=== PATIENT | female | born 1950 | race Caucasian/White ===

== ENCOUNTER 2019-11-14 12:15 | Inpatient (IN) | payer MEDICARE, BC, SELFPAY ==
[2019-11-03 12:29] VITALS: BP 92/52; PULSE 65; RESP 16; TEMP 36.8; O2SAT 100; BMI 13.1
--- NOTE | 2019-11-13 17:32 | WPDANESEPP ---
Anes - Eval Pre Procedure Procedure: Operation Date: 11/14/19 07:30 Proposed Procedures p Hand-Assisted Laparoscopic Left Nephrectomy, Possible Transurethral Resection Left Ureteral Orifice - Robbie Galvan MD Date/Time: 11/13/19 17:32 Pre Op Diagnosis: Left Renal Mass Patient Data Age: 69 Gender: F Height: 5 ft 2 in Weight: 32.7 kg Last Vital Signs Temp 98.2 F 11/03/19 12:29 Pulse 65 11/03/19 12:29 Resp 16 11/03/19 12:29 BP 92/52 L 11/03/19 12:29 Pulse Ox 100 11/03/19 12:29 Allergies Allergy/AdvReac Type Severity Reaction Status Date / Time No Known Allergies Allergy Unverified 11/03/19 12:39 Home Medications Medication Instructions Recorded Confirmed Type alendronate [Fosamax] 70 mg PO WEEKLY 10/03/19 11/03/19 History levothyroxine [Synthroid] 88 mcg PO DAILY 10/03/19 11/03/19 History Patient hx anesthesia problems: none Family hx anesthesia problems: none PMFSH Past Medical History Medical History (Updated 11/13/19 @ 17:34 by David Matthew CRNA) Arthritis Hypothyroidism Osteoporosis Thyroid cancer Surgical History Surgical History History of appendectomy History of hysterectomy History of thyroidectomy Family History Family History Other Family history of arthritis Family history of cardiovascular disease Family history of thyroid disease Social History Social History Smoking status: Never smoker Alcohol intake: never Gender identity (if verbalized by the patient): Female Exam Day of Procedure 11/13/19 17:32 Heart: other (VR 58, SINUS BRADYCARDIA POSSIBLE LEFT ATRIAL ENLARGEMENT RIGHT AXIS DEVIATION RSR' IN V1 OR V2, PROBABLY NORMAL VARIANT ANTEROLATERAL INFARCT, AGE INDETERMINATE INFERIOR INFARCT, AGE INDETERMINATE BASELINE ARTIFACT- I, III, AVR, AVL ABNORMAL ECG)
[2019-11-14] VITALS (13 sets, daily range): BP systolic 92–134; BP diastolic 50–91; PULSE 49–65; RESP 13–20; TEMP 36.1–37.8; O2SAT 99–100; BMI 13.4
[2019-11-14] MEDS: LACTATED RINGERS 1,000 ML 30 ML IV CONT (06:25)
--- NOTE | 2019-11-14 06:50 | P.PNAN_ITS ---
Anes - Eval Final PreProcedure Day of Procedure 11/14/19 06:50 Patient weight: thin Heart: regular rate and rhythm Lungs: clear to auscultation and normal air movement Airway: Mallampati scale class II Neurological: alert and oriented Last oral intake: >/= 8 hours ASA classification: III Emergent: no Anesthetic plan: proceed Anesthesia type and monitoring: general ETT Informed Consent: The patient's anesthetic plan and its attendant risks and jesse efits were discussed with the patient/family/POA. Questions were solicited and answers provided to the satisfaction of the patient/family/POA.
--- NOTE | 2019-11-14 06:51 | WPDHPUPDATE1 ---
History and Physical Update Update Date/Time: 11/14/19 06:51 History and Physical has been reviewed, including an updated exam of the patient. There are NO changes in the patient's condition. Risks, benefits, and alternatives have been discussed and questions answered. Patient agrees to proceed with procedure. Khadijah has opted for PAUL left nephroureterctomy with possible transurethral resection of left ureteral orifice.
--- NOTE | 2019-11-14 06:59 | SUR.PREOP ---
pt presents w/scabbed area d/i to left pisano area/md aware
[2019-11-14] MEDS: ceFAZolin 2 GM/D5W 50 ML 2 GM/50 ML BAG IVPB (07:26)
[2019-11-14] MEDS: LIDOCAINE HCL 2% GEL UROJET 10 ML PKG MUCOUS MEM (10:38)
--- NOTE | 2019-11-14 10:43 | PM.PROC ---
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 Once general anesthesia was obtained she was placed in the decubitus position left side up. All pressure points were padded. She was secured using a beanbag and silk tape. Axillary roll had been placed. Sixteen Faroese Estrada was placed into the bladder prior to positioning. Mr. Rustam santos is extremely cachectic in appearance. We started out by placing a midline incision around the umbilicus. This was carried down to the rectus fascia. The rectus fascia was incised and the abdominal cavity was entered. A hand port was placed in the abdomen was insufflated to 15 mmHg pressure. Under direct vision we placed our camera port mid axillary line to the left. We also placed a working hand port inferior and lateral to the GelPort. Given her extremely small size it was a tight working space. We were able to reflect the colon medially. There is very minimal Gerota's fascia around the kidney. We were able to dissect out the ureter and lifted off the psoas muscle. The kidney was then dissected posteriorly superiorly and medially. The renal artery and vein were adjacent to each other. Went ahead and placed an endovascular stapler across the renal hilar area. This was transected and there was good hemostasis. The ureter was then dissected down to the hiatus and entrance into the bladder. Fiona were placed at this point time. The specimen was sent to pathology. A Blu-Chase drain was then placed in the left lower quadrant through a separate stab incision and secured. All lap count needle count sponge counts were correct. Port sites were removed. We closed the port sites using 0 Vicryl. Rectus fascia was closed using double looped 0 PDS in a running fashion. Subcuticular stitches were then placed with Monocryl. Patient was then repositioned in a dorsal lithotomy position. Twenty-4 Faroese resectoscope sheath was then inserted into the bladder. The left ureteral orifice was noted to be puckering from the tension that was placed on the outside of the bladder. We went ahead and resected the orifice and intramural ureter and sent it for analysis. Hemostasis was achieved using electrocautery. 2% viscous lidocaine was inserted into the urethra and an 18 Faroese Estrada was placed. Estrada was connected to gravity drainage. Should be taken to recovery room. Remain in for a week and she will require a catheter cystogram prior to its removal. Anesthesia: GLMA and GETA Surgeon: Robbie Galvan MD Estimated blood loss (mL): 25 Drains: Yes Packing: No Pathology: yes Complications: No immediate complications Condition: stable Disposition: PACU
[2019-11-14] MEDS: ONDANSETRON INJ 4 MG/2 ML VIAL IV PUSH ×3 (12:04→18:13)
[2019-11-14 13:23] LABS: Hematocrit 33.5 % (37.0-47.0); Hemoglobin 10.8 g/dL (12.0-15.0)
--- NOTE | 2019-11-14 13:26 | ADMGEN ---
This patient, Khadijah Eddy, was admitted to [facility] Surg Room 323-01. Patient/family oriented to hospital policies and general routines including ID bracelet, bed and alarms, visiting hours, pain management, procedures, bathroom and other care routines, personal items, smoking policy, room service/diet, and visiting hours. Valuables list has been completed. Information on how to activate the Rapid Response Team has been discussed. Patient/Family are encouraged to report perceived risks to care and to ask questions if they do not understand what they are told or what they should do.
[2019-11-14 13:35] LABS: Blood Urea Nitrogen 26 mg/dL (7-17); Calcium 8.2 mg/dL (8.4-10.2); Carbon Dioxide 26 mmol/L (22-30); Chloride 99 mmol/L (98-107); Estimated CRCL calculation 37 ml/min; Estimated Glomerular Filt Rate > 60; Glucose 138 mg/dL (65-105); Potassium 4.1 mmol/L (3.4-5.0); Sodium 132 mmol/L (137-145)
[2019-11-14] MEDS: DEXTROSE 5%/LACTATED RINGERS 1,000 ML 150 ML IV CONT ×2 (14:05→22:33)
[2019-11-14] MEDS: FAMOTIDINE 20 MG/2 ML VIAL IV PUSH (20:59)
[2019-11-14] MEDS: OXYBUTYNIN CHLORIDE 5 MG TABLET PO (21:00)
[2019-11-15] VITALS: BP 93/48; PULSE 76; RESP 16; TEMP 37.3; O2SAT 100
[2019-11-15] MEDS: DEXTROSE 5%/LACTATED RINGERS 1,000 ML 150 ML IV CONT ×3 (05:37→20:00)
[2019-11-15] MEDS: LEVOTHYROXINE SODIUM 88 MCG TABLET PO (05:37)
[2019-11-15] MEDS: ALENDRONATE SODIUM 70 MG TABLET PO (05:38)
[2019-11-15 06:00] VITALS: BP 89/51; PULSE 75; RESP 16; TEMP 36.7; O2SAT 98
[2019-11-15 06:15] LABS: Basophils Percent Auto 0.2 % (0.2-1.2); Hematocrit 31.5 % (37.0-47.0); Hemoglobin 10.3 g/dL (12.0-15.0); Immature Granulocyte Absolute 0.01 K/mm3 (0.00-0.031); Immature Granulocyte Percent A 0.2 % (0-0.5); Lymphocytes Absolute Auto 0.33 K/mm3 (0.9-3.2); Mean Corpuscular HGB Conc 32.7 g/dl (32-36); Mean Corpuscular Hemoglobin 30.4 pg (26-34); Mean Corpuscular Volume 92.9 fl (80-100); Mean Platelet Volume 9.1 fl (7.4-10.4); Monocytes Absolute Auto 0.4 K/mm3 (0.1-0.6); Monocytes Percent Auto 7.6 % (2.6-8.5); Neutrophils Absolute Auto 4.7 K/mm3 (1.3-6.7); Platelet Count Result 164 k/mm3 (150-375); Red Blood Count 3.39 M/mm3 (4.2-5.4); Red Cell Distribution Width 14.4 % (11.5-14.5); White Blood Count 5.5 K/mm3 (4.5-10.0)
[2019-11-15 06:29] LABS: Blood Urea Nitrogen 20 mg/dL (7-17); Carbon Dioxide 31 mmol/L (22-30); Chloride 100 mmol/L (98-107); Estimated CRCL calculation 23 ml/min; Estimated Glomerular Filt Rate 55; Glucose 101 mg/dL (65-105); Potassium 4.3 mmol/L (3.4-5.0); Sodium 133 mmol/L (137-145)
--- NOTE | 2019-11-15 07:00 | WPDUROPN2 ---
Progress Note: A&P Assessment and Plan (1) Left renal mass: Code(s): N28.89 - Other specified disorders of kidney and ureter Status: Acute Assessment and Plan: Postoperative day 1 from hand assisted laparoscopic left nephro ureterectomy with TUR of left ureteral orifice. Doing well overall. Plan is for increasing activity with ambulation as well as incentive spirometer. Have discussed her extreme weight loss. She is aware but has difficulty addressing it. 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 From hand assisted laparoscopic left nephroureterectomy with transurethral resection of left ureteral orifice. Khadijah is doing well overall. Vital signs are stable she does run a lower blood pressure. Has typical postoperative discomfort at hand port site. Review of Systems Constitutional: Constitutional: Reports as per HPI Exam Const: General: no acute distress HENMT: General nose exam: Normal nares present Eyes: General: appearance normal, both eyes and all related structures EOM: EOMs intact bilaterally Resp: Effort & Inspection: normal respiratory effort Cardio: Rate: regular rate Urinary Catheter: Urinary Catheter: patent and draining and urine clear Objective Data Vital Signs Vital Signs: Vital Signs - 24 hr 11/14/19 10:50 11/14/19 11:00 11/14/19 11:15 Temperature 36.1 C L Pulse Rate 63 65 54 L Respiratory Rate 20 19 19 Blood Pressure 103/54 L 134/91 H 120/61 Pulse Oximetry 100 100 100 11/14/19 11:30 11/14/19 11:45 11/14/19 12:00 Temperature Pulse Rate 49 L 51 L 49 L Respiratory Rate 13 13 13 Blood Pressure 108/57 L 114/60 114/60 Pulse Oximetry 100 100 100 11/14/19 12:13 11/14/19 12:15 11/14/19 12:30 Temperature Pulse Rate 51 L 51 L 52 L Respiratory Rate 13 16 16 Blood Pressure 118/57 L 106/52 L 106/50 L Pulse Oximetry 100 100 100 11/14/19 13:00 11/14/19 20:10 11/14/19 21:00 Temperature 37.8 C H 36.8 C Pulse Rate 60 62 Respiratory Rate 16 16 Blood Pressure 110/63 92/51 L Pulse Oximetry 100 99 11/15/19 00:00 Temperature 37.3 C Pulse Rate 76 Respiratory Rate 16 Blood Pressure 93/48 L Pulse Oximetry 100 Intake/Output Intake/Output: Intake & Output 11/12/19 11/13/19 11/14/19 11/15/19 23:59 23:59 23:59 23:59 Intake Total 1435 1000 Output Total 180 Balance 1255 1000 Meds/Results Medications: Active Medications Generic Name Dose Route Start Last Admin Trade Name Freq PRN Reason Stop Dose Admin Hydrocodone Bitart/Acetaminophen 2 tab 11/15/19 05:00 [place] 5-325 Mg PO Q4H PRN Pain Rated 4-6 Hydrocodone Bitart/Acetaminophen 1 tab 11/15/19 09:00 [place] 5-325 Mg PO Q4H PRN Pain Rated 1-3 Alendronate Sodium 70 mg 11/14/19 14:00 11/14/19 18:15 Fosamax PO Not Given Tu@0630 BETTIE Famotidine 20 mg 11/14/19 21:00 11/14/19 20:59 Pepcid Iv IV PUSH 11/16/19 09:01 20 mg Q12HR BETTIE Administration Hydromorphone HCl 0.5 mg 11/14/19 12:13 Dilaudid Inj IV PUSH Q4H PRN Pain Rated 7-10 Dextrose/Lactated Ringer's 1,000 mls @ 150 mls/hr 11/14/19 12:13 11/15/19 05:37 Dextrose 5%/Lactated Ringers IV CONT 150 mls/hr .Q6H40M BETTIE Administration Cefazolin Sodium 1 gm in 50 mls @ 100 mls/hr 11/14/19 15:00 11/15/19 05:37 Ancef 1 Gm/D5w 50 Ml Pm IVPB 11/15/19 07:29 100 mls/hr Q8H BETTIE Administration Levothyroxine Sodium 88 mcg 11/15/19 06:30 11/15/19 05:37 Synthroid PO 88 mcg DAILY@0630 BETTIE Administration Morphine Sulfate 1 mg 11/14/19 14:00 Morphine Sulfate Inj IV PUSH Q4H PRN Pain Rated 4-6 Naloxone HCl 0.1 mg 11/14/19 12:13 Narcan IV PUSH Q2M PRN Opiate Reversal Ondansetron HCl 4 mg 11/14/19 12:13 11/14/19 18:13 Zofran Inj IV
[2019-11-15] MEDS: FAMOTIDINE 20 MG/2 ML VIAL IV PUSH ×2 (09:12→20:01)
[2019-11-15] MEDS: OXYBUTYNIN CHLORIDE 5 MG TABLET PO ×2 (09:12→20:01)
[2019-11-15 10:00] VITALS: BP 86/45; PULSE 66; RESP 16; TEMP 37.2; O2SAT 100
--- NOTE | 2019-11-15 11:34 | P.PNAN_ITS ---
Anes - Prog Note Post-Op Date/Time: 11/15/19 11:34 Cardiovascular status: normal Respiratory status: normal Airway patency: baseline Mental status: baseline Post-Op hydration status: normal Vital Signs: Last Vital Signs Temp 37.2 C 11/15/19 10:00 Pulse 66 11/15/19 10:00 Resp 16 11/15/19 10:00 BP 86/45 L 11/15/19 10:00 Pulse Ox 100 11/15/19 10:00 I/O: Intake & Output 11/14/19 11/15/19 11/15/19 23:59 07:59 15:59 Intake Total 1220 1060 Output Total 160 1325 Balance 1060 -265 Laboratory Tests 11/15/19 05:58 11/15/19 05:58 11/14/19 11/14/19 11/15/19 13:14 13:14 05:58 WBC 5.5 RBC 3.39 L Hgb 10.8 L 10.3 L Hct 33.5 L 31.5 L MCV 92.9 MCH 30.4 MCHC 32.7 RDW 14.4 Plt Count 164 MPV 9.1 Immature Gran % (Auto) 0.2 Neut % (Auto) 86.0 H Lymph % (Auto) 6.0 L Callahan % (Auto) 7.6 Eos % (Auto) 0.0 Baso % (Auto) 0.2 Lymph # (Auto) 0.33 L Callahan # (Auto) 0.4 Eos # (Auto) 0.0 Baso # (Auto) 0.0 Abs Immat Gran (auto) 0.01 Absolute Neuts (auto) 4.7 Absolute Nucleated RBC 0.0 Nucleated RBC % 0.0 Sodium 132 L Potassium 4.1 Chloride 99 Carbon Dioxide 26 BUN 26 H Creatinine 0.60 L Estim Creat Clear Calc 37 Estimated GFR > 60 Glucose 138 H Calcium 8.2 L 11/15/19 05:58 WBC RBC Hgb Hct MCV MCH MCHC RDW Plt Count MPV Immature Gran % (Auto) Neut % (Auto) Lymph % (Auto) Callahan % (Auto) Eos % (Auto) Baso % (Auto) Lymph # (Auto) Callahan # (Auto) Eos # (Auto) Baso # (Auto) Abs Immat Gran (auto) Absolute Neuts (auto) Absolute Nucleated RBC Nucleated RBC % Sodium 133 L Potassium 4.3 Chloride 100 Carbon Dioxide 31 H BUN 20 H Creatinine 1.00 Estim Creat Clear Calc 23 Estimated GFR 55 L Glucose 101 Calcium 8.0 L Post-procedural complaints: none Patient Feedback: Patient satisfied with anesthetic care.
--- NOTE | 2019-11-15 13:32 | PCNSR ---
On 11/15/19, the student, Amena Angeles, provided care and completed [facility] documentation on this patient. I have reviewed the student's documentation and agree with the findings.
[2019-11-15 14:00] VITALS: BP 96/57; PULSE 66; RESP 16; TEMP 37.9; O2SAT 100
[2019-11-15 21:46] VITALS: BP 101/52; PULSE 65; RESP 16; TEMP 37.8; O2SAT 100
[2019-11-16] MEDS: DEXTROSE 5%/LACTATED RINGERS 1,000 ML 150 ML IV CONT ×4 (02:44→22:57)
[2019-11-16] MEDS: LEVOTHYROXINE SODIUM 88 MCG TABLET PO (05:53)
[2019-11-16 06:00] VITALS: BP 100/43; PULSE 60; RESP 16; TEMP 37.8; O2SAT 100
[2019-11-16] MEDS: FAMOTIDINE 20 MG/2 ML VIAL IV PUSH (08:20)
[2019-11-16] MEDS: OXYBUTYNIN CHLORIDE 5 MG TABLET PO ×2 (08:20→20:12)
--- NOTE | 2019-11-16 09:33 | WPDUROPN2 ---
Progress Note: A&P Assessment and Plan (1) Left renal mass: Code(s): N28.89 - Other specified disorders of kidney and ureter Status: Acute Assessment and Plan: POD#1 left PAUL nephroureterectomy with tur of ureteral orifice Increase activity Check urine from joselin for creatinine Possible discharge later today or in am. Path with transitional cell carcinoma with neg margins. Subjective Subjective Date/Time Seen: 11/16/19 09:33 Post Op day: 2 (PAUL left nephroureterectomy with tur of ureteral orifice. 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 No flatus yet. Patient is ambulating. JOSELIN with moderate output still. Appreciate dietary input. Review of Systems Review of Systems: All systems reviewed & are unremarkable except as noted in HPI and below Exam Const: General: no acute distress HENMT: General nose exam: Normal nares present Eyes: General: appearance normal, both eyes and all related structures Resp: Effort & Inspection: normal respiratory effort Cardio: Rate: regular rate Urinary Catheter: Urinary Catheter: patent and draining and urine clear Objective Data Vital Signs Vital Signs: Vital Signs - 24 hr 11/15/19 10:00 11/15/19 14:00 11/15/19 21:46 Temperature 37.2 C 37.9 C H 37.8 C H Pulse Rate 66 66 65 Respiratory Rate 16 16 16 Blood Pressure 86/45 L 96/57 L 101/52 L Pulse Oximetry 100 100 100 11/16/19 06:00 Temperature 37.8 C H Pulse Rate 60 Respiratory Rate 16 Blood Pressure 100/43 L Pulse Oximetry 100 Intake/Output Intake/Output: Intake & Output 11/13/19 11/14/19 11/15/19 11/16/19 23:59 23:59 23:59 23:59 Intake Total 1435 4600 2500 Output Total 180 2175 2285 Balance 1255 2425 215 Meds/Results Medications: Active Medications Generic Name Dose Route Start Last Admin Trade Name Freq PRN Reason Stop Dose Admin Hydrocodone Bitart/Acetaminophen 2 tab 11/15/19 05:00 [place] 5-325 Mg PO Q4H PRN Pain Rated 4-6 Hydrocodone Bitart/Acetaminophen 1 tab 11/15/19 09:00 11/16/19 05:59 [place] 5-325 Mg PO 1 tab Q4H PRN Administration Pain Rated 1-3 Alendronate Sodium 70 mg 11/14/19 14:00 11/14/19 18:15 Fosamax PO Not Given Tu@0630 [facility] Hydromorphone HCl 0.5 mg 11/14/19 12:13 Dilaudid Inj IV PUSH Q4H PRN Pain Rated 7-10 Dextrose/Lactated Ringer's 1,000 mls @ 150 mls/hr 11/14/19 12:13 11/16/19 09:31 Dextrose 5%/Lactated Ringers IV CONT 150 mls/hr .Q6H40M BETTIE Administration Levothyroxine Sodium 88 mcg 11/15/19 06:30 11/16/19 05:53 Synthroid PO 88 mcg DAILY@0630 [facility] Administration Morphine Sulfate 1 mg 11/14/19 14:00 Morphine Sulfate Inj IV PUSH Q4H PRN Pain Rated 4-6 Naloxone HCl 0.1 mg 11/14/19 12:13 Narcan IV PUSH Q2M PRN Opiate Reversal Ondansetron HCl 4 mg 11/14/19 12:13 11/14/19 18:13 Zofran Inj IV PUSH 4 mg Q6H PRN Administration Nausea And Vomiting Oxybutynin Chloride 5 mg 11/14/19 21:00 11/16/19 08:20 Ditropan PO 5 mg Q12HR BETTIE Administration
[2019-11-16 12:35] LABS: Creatinine Urine < 3.2 mg/dL
[2019-11-16 14:00] VITALS: BP 127/63; PULSE 99; RESP 16; TEMP 37.4; O2SAT 95
[2019-11-16 22:00] VITALS: BP 117/58; PULSE 66; RESP 16; TEMP 37.3; O2SAT 96
[2019-11-17] MEDS: DEXTROSE 5%/LACTATED RINGERS 1,000 ML 150 ML IV CONT (05:36)
[2019-11-17] MEDS: LEVOTHYROXINE SODIUM 88 MCG TABLET PO (05:37)
[2019-11-17 06:00] VITALS: BP 104/53; PULSE 57; RESP 18; TEMP 37; O2SAT 97
[2019-11-17] MEDS: OXYBUTYNIN CHLORIDE 5 MG TABLET PO (08:17)
--- NOTE | 2019-11-17 08:48 | P.PNUR_ITS ---
Progress Note: A&P Assessment and Plan (1) Left renal mass: Code(s): N28.89 - Other specified disorders of kidney and ureter Status: Acute Assessment and Plan: Discharge home with carey and JOSELIN. Record joselin outputs per 24 hours and call [facility] volume on wednesday. Office to schedule catheter cystogram. Subjective Subjective Date/Time Seen: 11/17/19 08:48 Post Op day: 2 Principal diagnosis: TCC left kidney Interval history: Doing well. Ambulating in halls. Passing flatus. JOSELIN still with significant output . Fluid creatinine <3.2 Review of Systems Review of Systems: All systems reviewed & are unremarkable except as noted in HPI and below Exam HENMT: General nose exam: Normal nares present Eyes: General: appearance normal, both eyes and all related structures Resp: Effort & Inspection: normal respiratory effort Cardio: Rate: regular rate Urinary Catheter: Urinary Catheter: patent and draining and urine clear Objective Data Vital Signs Vital Signs: Vital Signs - 24 hr 11/16/19 14:00 11/16/19 22:00 11/17/19 06:00 Temperature 37.4 C 37.3 C 37.0 C Pulse Rate 99 66 57 L Respiratory Rate 16 16 18 Blood Pressure 127/63 117/58 L 104/53 L Pulse Oximetry 95 96 97 Intake/Output Intake/Output: Intake & Output 11/14/19 11/15/19 11/16/19 11/17/19 23:59 23:59 23:59 23:59 Intake Total 1435 4600 4970 1250 Output Total 180 2175 3990 1440 Balance 1255 2425 980 -190 Meds/Results Medications: Active Medications Generic Name Dose Route Start Last Admin Trade Name Freq PRN Reason Stop Dose Admin Hydrocodone Bitart/Acetaminophen 2 tab 11/15/19 05:00 11/17/19 08:19 [place] 5-325 Mg PO 2 tab Q4H PRN Administration Pain Rated 4-6 Hydrocodone Bitart/Acetaminophen 1 tab 11/15/19 09:00 11/16/19 20:12 [place] 5-325 Mg PO 1 tab Q4H PRN Administration Pain Rated 1-3 Alendronate Sodium 70 mg 11/14/19 14:00 11/14/19 18:15 Fosamax PO Not Given Tu@0630 [facility] Hydromorphone HCl 0.5 mg 11/14/19 12:13 Dilaudid Inj IV PUSH Q4H PRN Pain Rated 7-10 Dextrose/Lactated Ringer's 1,000 mls @ 150 mls/hr 11/14/19 12:13 11/17/19 05:36 Dextrose 5%/Lactated Ringers IV CONT 150 mls/hr .Q6H40M BETTIE Administration Levothyroxine Sodium 88 mcg 11/15/19 06:30 11/17/19 05:37 Synthroid PO 88 mcg DAILY@0630 [facility] Administration Morphine Sulfate 1 mg 11/14/19 14:00 Morphine Sulfate Inj IV PUSH Q4H PRN Pain Rated 4-6 Naloxone HCl 0.1 mg 11/14/19 12:13 Narcan IV PUSH Q2M PRN Opiate Reversal Ondansetron HCl 4 mg 11/14/19 12:13 11/14/19 18:13 Zofran Inj IV PUSH 4 mg Q6H PRN Administration Nausea And Vomiting Oxybutynin Chloride 5 mg 11/14/19 21:00 11/17/19 08:17 Ditropan PO 5 mg Q12HR BETTIE Administration Labs Labs: Laboratory Results - last 24 hr 11/16/19 12:20 Urine Creatinine < 3.2
--- NOTE | 2019-12-19 13:50 | PM.DS ---
DS: Diagnosis Admitting Diagnosis Admitting Diagnosis: Malignant neoplasm of left renal pelvis DS: Summary Time Spent with Patient Time attestation: Total time spent providing and/or coordinating discharge services: DS: Data Data Completed and Pending Completed studies during hospitalization: Pending at discharge 11/14/19 09:24 Surgical [PTH] Routine Surgical [PTH] Routine Discharge Plan Discharge Discharging Clinician: Robbie Galvan Patient Disposition: Home, Self-Care Activity: may shower Diet: as tolerated Wound Care Instructions: incision open to air Discharge Instructions: Instructed on catheter care as well as GREGORY care. Instructed on use of leg bag. Patient is to record GREGORY output per 24 hours and call Wednesday with volumes. Office to schedule catheter cystogram next week as outpatient. Scripts for Ultram and Keflex 250 mg daily sent to patient's listed pharmacy Patient Instructions: Antibiotic Form, Nefrectom?a (DC), Blu-Chase Drain Care (DC) Stand Alone Forms: General Discharge Information Follow-up/Referrals: Robbie Galvan MD [Physician] - 1 Week Discharge Medications: Continued alendronate [Fosamax] 70 mg Tablet 70 mg PO WEEKLY RF: 0 levothyroxine [Synthroid] 88 mcg Tablet 88 mcg PO DAILY RF: 0 Date of admission: 11/14/19 12:15 Primary Care Provider: Akbar Chapman Admitting Provider: Robbie Galvan Discharge Date/Time: 11/17/19 11:00 Attending physician on admission: Robbie Galvan
== END 2019-11-17 11:00 | disposition home or self-care (01) | DRG 657 ==
LOC: ANH3MEDSUR 13:06
PROVIDERS: Admitting Provider Urology; PCP Family Medicine; Visit Provider Urology
PROC: 0TT10ZZ Resection of Left Kidney, Open Approach (ICD-10-PCS; principal; 2019-11-14 07:30)
DX: C65.2 Malignant neoplasm of left renal pelvis (principal); Z68.1 Body mass index [BMI] 19.9 or less, adult; R64 Cachexia
CPT/HCPCS: 36415; 80048; 82570; 85014; 85018; 85025; 88305; 88307; A9270; J0131; J0690; J1100; J1170; J2250; J2405; J2704; J3010; J7120; J7121

== ENCOUNTER 2019-11-24 08:45 | Outpatient (CLI) | payer MEDICARE, BC, SELFPAY ==
--- NOTE | ~2019-11-24 | XR_ITS ---
EXAMINATION: CYSTOGRAM DATE: 11/24/2019 09:36 INDICATION: Cancer of the left renal pelvis post left nephrectomy and ureterectomy. TECHNIQUE: Initial rand butter radiograph of the pelvis was performed. There was retrograde administration of Omnipaque 350 mixed with saline contrast into patient's existing carey catheter. Fluoroscopic dipesh ges of the pelvis were obtained. A post-void image was also performed. A total of 22 fluoroscopic dipesh ges were recorded. Fluoroscopy exposure time was 0.3 minutes. FINDINGS: Flaring Machine Operator image demonstrates suture line at the left renal fossa. Surgical clip in the left hemipelvis. L eft lower quadrant surgical drain which extends across the midline with distal tip in the right lower quadrant. Severe lumbar spondylosis. Subsequent images demonstrate retrograde contrast filling of the bladder which appears normal with sm ooth mucosal contour and no filling defects. No evident bladder leak or right-sided ureteral reflux. IMPRESSION: No bladder leak. Reviewed, dictated and finalized at location A. ONNEL REPRESENTATIVE IMPRESSION: No bladder leak.
== END 2019-11-24 08:46 | disposition home or self-care (01) ==
LOC: ANHIMG 08:49
PROVIDERS: PCP Family Medicine; Visit Provider Urology
DX: C65.2 Malignant neoplasm of left renal pelvis (principal)
CPT/HCPCS: 51600; 74430; Q9967

== ENCOUNTER → 2019-12-14 09:56 | Outpatient (CLI) | payer MEDICARE, BC, SELFPAY ==
--- NOTE | ~2019-12-14 | DEXA_ITS ---
Bone Density Report Name: Khadijah Eddy Age: 69 Sex: Female Ethnicity: White Date of : 1950 Indication: osteopenia; monitoring treatment; hysterectomy; postmenopausal Referring Provider: RANJITH KELLY Study: Bone densitometry was performed. Exam Date: December 14, 2019 Accession number: [id number] Bone Density: Region BMD T-score Z-score Classification AP Spine (L1, L2, L4) 0.794 -2.2 0.0 Osteopenia Femoral Neck (Left) 0.515 -3.0 -1.1 Osteoporosis Total Hip (Left) 0.714 -1.9 -0.3 Osteopenia Femoral Neck (Right) 0.550 -2.7 -0.8 Osteoporosis Total Hip (Right) 0.758 -1.5 0.1 Osteopenia Total Hip Mean 0.736 -1.7 -0.1 Osteopenia World Health Organization criteria for BMD impression classify patients as: Normal (T-score at or above -1.0), Osteopenia (T-score between -1.0 and -2.5), or Osteoporosis (T-score at or below -2.5). 10-year Fracture Risk: FRAX not reported because: Some T-score for Spine Total or Hip Total or Femoral Neck at or below -2.5 Treated for osteoporosis Previous Exams: Region Exam Age BMD T-score BMD Change BMD Change Date g/cm2 vs Baseline vs Previous AP Spine(L1, L2, L4) 12/14/2019 69 0.794 -2.2 0.078* 0.030* 11/14/2015 65 0.765 -2.4 0.048* 0.011 09/16/2009 59 0.754 -2.5 0.037* 0.037* 08/06/2006 55 0.717 -2.9 Total Hip(Left) 12/14/2019 69 0.714 -1.9 -0.062* 0.001 11/18/2017 67 0.713 -1.9 -0.063* -0.039* 11/14/2015 65 0.752 -1.6 -0.024 0.108* 09/16/2009 59 0.644 -2.4 -0.131* -0.131* 08/06/2006 55 0.775 -1.4 Total Hip(Right) 12/14/2019 69 0.758 -1.5 -0.106* -0.012 11/18/2017 67 0.771 -1.4 -0.094* -0.033* 11/14/2015 65 0.804 -1.1 -0.061* 0.102* 09/16/2009 59 0.702 -2.0 -0.163* -0.163* 08/06/2006 55 0.865 -0.6 *Denotes significance at 95% confidence level, LSC for AP Spine = 0.022 g/cm2, LSC for Total Hip = 0.027 g/cm2 Clinical Information Provided by Patient: Is being treated for osteoporosis Has used the following medications: Fosamax (i.e. alendronate), Vitamin D, Calcium Has the following medical conditions: Hysterectomy, OVARY RX DUE TO CANCER Patient maximum height was 62 Menopause Age: 38 Does not regularly consume dairy products Drinks caffeinated beverages Onset of menses at age 11 Number of children 1
== END ==
PROVIDERS: PCP Family Medicine; Visit Provider Obstetrics & Gynecology Gynecology
DX: Z78.0 Asymptomatic menopausal state (principal); M81.0 Age-related osteoporosis without current pathological fracture; M85.852 Other specified disorders of bone density and structure, left thigh; M85.851 Other specified disorders of bone density and structure, right thigh; M85.88 Other specified disorders of bone density and structure, other site
CPT/HCPCS: 77080

== ENCOUNTER 2020-03-27 13:10 | Outpatient (CLI) | payer MEDICARE, BC, SELFPAY ==
--- NOTE | ~2020-03-27 | XR_ITS ---
EXAMINATION: XR chest 2V DATE: 03/27/2020 13:27 INDICATION: Cancer of the left renal pelvis TECHNIQUE: PA and lateral views of the chest are obtained. COMPARISON: None available FINDINGS: The lungs are hyperinflated. There is a symmetric opacity in the right lung apex. There is no pleural effusion or pneumothorax. The cardiomediastinal silhouette is normal. There is mild thorac ic spondylosis. Thoracic dextroscoliosis is noted. IMPRESSION: 1. Asymmetric opacity of the right lung apex which could reflect scarring however further evaluation with CT of the chest is recommended. Reviewed, dictated and finalized at location A. IMPRESSION: 1. Asymmetric opacity of the right lung apex which could reflect scarring howev er further evaluation with CT of the chest is recommended.
--- NOTE | ~2020-03-27 | CT_ITS ---
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 CT of the abdomen and pelvis was then performed with a total of 80 mL Omnipaque 350 intravenous contrast using a double-bolus technique for simultaneous opacification of the renal parenchyma and re nal collecting system. The dose-length product (DLP) was 377.30 mGy-cm. Automated exposure control an d iterative reconstruction technique were employed. COMPARISON: 09/08/2019 FINDINGS: There is moderate emphysema. The visualized lung bases are clear. The heart size is normal. Cysts of the liver measure up to 6 mm. The spleen, pancreas, gallbladder, and adrenal glands are nor mal. There are changes of interval left nephroureterostomy. No residual neoplasm is identified. An ar ea of scarring is noted in the otherwise normal-appearing right kidney. No pathologically enlarged ab dominal or pelvic lymph nodes are identified. There is no free intraperitoneal gas or evidence of bow el obstruction. A large volume of colonic stool is present. IMPRESSION: 1. Changes of interval left nephroureterectomy without residual or recurrent malignancy identified. T here is moderate lumbar spondylosis. Reviewed, dictated and finalized at location A. IMPRESSION: 1. Changes of interval left nephroureterectomy without residual or recurrent ma lignancy identified. There is moderate lumbar spondylosis.
[2020-03-27 13:36] LABS: Estimated Glomerular Filt Rate > 60
== END 2020-03-27 13:11 | disposition home or self-care (01) ==
PROVIDERS: PCP Family Medicine; Visit Provider Urology
DX: C65.2 Malignant neoplasm of left renal pelvis (principal); R91.8 Other nonspecific abnormal finding of lung field
CPT/HCPCS: 36415; 71046; 74178; Q9967

== ENCOUNTER 2020-04-16 10:27 | Outpatient (CLI) | payer MEDICARE, BC, SELFPAY ==
--- NOTE | ~2020-04-16 | CT_ITS ---
EXAMINATION: CT chest wo con DATE: 04/16/2020 11:27 INDICATION: Cancer of the left renal pelvis. TECHNIQUE: Computed tomography (CT) of the chest was performed without intravenous contrast. The dose -length product was 136.18 mGy-cm. Automated exposure control and iterative reconstruction technique were employed. COMPARISON: CT dated 03/27/2020 FINDINGS: Heart size normal. No significant pleural or pericardial effusion. No thoracic lymphadenopa thy. Mild atherosclerosis. Visualized aspects of the upper abdomen are unremarkable. There is biapica l pleural thickening/scarring. No endobronchial lesions. There is an irregular shaped subsolid nodule in the right lower lobe measuring 11 mm, image 70. There is right middle lobe atelectasis/scarring. There is lingular atelectasis/scarring. There are several 2-3 mm nodules bilaterally. There is dextro scoliosis of the thoracic spine. There are small sclerotic lesions in the thoracic spine. There is sc lerosis in the left fifth rib laterally. There are a few punctate foci of sclerosis and additional ri bs bilaterally. IMPRESSION: 1. Sclerotic lesions of the thoracic spine and ribs. Cannot exclude metastatic disease. Consider vanita elation with bone scan. 2: Bilateral pulmonary nodules, largest being subserosal solid measuring 11 mm in the right lower lo be. Although these are likely postinfectious/inflammatory, metastatic disease not excluded. Follow-up CT chest in 3-6 months recommended. Reviewed, dictated and finalized at location A. IMPRESSION: 1. Sclerotic lesions of the thoracic spine and ribs. Cannot exclude metastatic disease. Consider correlation with bone scan. 2: Bilateral pulmonary nodules, largest being subserosal solid measuring 11 mm in the right lower lobe. Although these are likely postinfectious/inflammatory , metastatic disease not excluded. Follow-up CT chest in 3-6 months recommended .
== END 2020-04-16 10:28 | disposition home or self-care (01) ==
LOC: ANHIMG 10:28
PROVIDERS: PCP Family Medicine; Visit Provider Urology
DX: C65.2 Malignant neoplasm of left renal pelvis (principal); M89.9 Disorder of bone, unspecified; R91.8 Other nonspecific abnormal finding of lung field
CPT/HCPCS: 71250

== ENCOUNTER 2020-05-29 09:04 | Outpatient (CLI) | payer MEDICARE, BC, SELFPAY ==
--- NOTE | ~2020-05-29 | NM_ITS ---
EXAMINATION: NM bone scan whole body DATE: 05/29/2020 12:18 INDICATION: Cancer of left renal pelvis. TECHNIQUE: 21 mCi Tc-99m HDP was administered intravenously. Delayed whole-body scintigrams were obt ained. COMPARISON: Chest CT 04/16/2020, CT abdomen and pelvis 03/27/2020, 09/08/2019, 09/17/2018 FINDINGS: There is joint-centered increased activity in the hands and left knee without radiographic comparison, likely osteoarthritis. There is joint-centered increased activity at the sternoclavicular joints and in the spine correlating with degenerative changes by CT. There is increased activity in left seventh rib correlating with an expansile sclerotic lesion by CT that was present on the topogra m from 09/17/18, consistent with fibrous dysplasia. There is increased activity in right ninth rib cor relating with a fracture by CT. Left kidney is absent. IMPRESSION: 1. Increased activity in left seventh rib correlating with a chronic expansile sclerotic lesion by CT , consistent with fibrous dysplasia. Other small sclerotic lesions on the prior CT without bone scan correlate are likely benign bone islands. 2. Right ninth rib fracture. Reviewed, dictated and finalized at location A. IMPRESSION: 1. Increased activity in left seventh rib correlating with a chronic expansile sclerotic lesion by CT, consistent with fibrous dysplasia. Other small scleroti c lesions on the prior CT without bone scan correlate are likely benign bone is lands. 2. Right ninth rib fracture.
== END 2020-05-29 09:05 | disposition home or self-care (01) ==
LOC: ANHIMG 09:08
PROVIDERS: PCP Family Medicine; Visit Provider Urology
DX: C65.2 Malignant neoplasm of left renal pelvis (principal); S22.31XA Fracture of one rib, right side, initial encounter for closed fracture; X58.XXXA Exposure to other specified factors, initial encounter
CPT/HCPCS: 78306; A9561

== ENCOUNTER 2020-09-13 10:36 | Outpatient (CLI) | payer MEDICARE, BC, SELFPAY ==
--- NOTE | ~2020-09-13 | CT_ITS ---
EXAMINATION:CT chest wo con DATE: 09/13/2020 11:11 INDICATION: Cancer of left renal pelvis. TECHNIQUE: Computed tomography (CT) of the chest was performed without intravenous contrast. Automate d exposure control and iterative reconstruction technique were employed. The dose-length product (DLP ) was 140.62 mGy-cm. COMPARISON: Chest CT 04/16/2020 FINDINGS: There is mild scarring at the lung apices. There is mild bronchiectasis in right middle lob e and lingula with mucous plugging and mild atelectasis. There are a few scattered nodules in the avani gs measuring up to 3 mm, likely benign. There is an 11 mm part-solid nodule in right lower lobe, stab le from 04/16/20, likely benign. No pleural effusion. The heart size is normal. No pericardial effusion . There are changes of left nephrectomy. There are cysts in the liver measuring up to 6 mm. Pectus ex cavatum is noted. There is a chronic sclerotic lesion in left seventh rib, consistent with fibrous dy splasia. There is a burst fracture of L1 with 4/5 loss of height and retropulsion of bone 4 mm into c entral spinal canal. There are old healed fractures of right ninth and 10th ribs. IMPRESSION: 1. No evidence of metastatic disease. 2. 11 mm part-solid nodule in right lung lower lobe, likely benign. Noncontrast, low-dose chest CT is recommended in one year. 3. L1 burst fracture, new from 04/16/2020, likely subacute. Reviewed, dictated and finalized at location A. RVISOR FABRICATION IMPRESSION: 1. No evidence of metastatic disease. 2. 11 mm part-solid nodule in right lung lower lobe, likely benign. Noncontrast , low-dose chest CT is recommended in one year. 3. L1 burst fracture, new from 04/16/2020, likely subacute.
== END 2020-09-13 10:37 | disposition home or self-care (01) ==
PROVIDERS: PCP Family Medicine; Visit Provider Urology
DX: C65.2 Malignant neoplasm of left renal pelvis (principal); S32.011A Stable burst fracture of first lumbar vertebra, initial encounter for closed fracture; X58.XXXA Exposure to other specified factors, initial encounter
CPT/HCPCS: 71250

== ENCOUNTER 2021-01-01 07:34 | Outpatient (CLI) | payer MEDICARE, BC, SELFPAY ==
--- NOTE | ~2021-01-01 | MM_ITS ---
EXAMINATION: MM screening sharan BI w boone HISTORY: Screening mammogram TECHNIQUE: Craniocaudal and mediolateral oblique 3-D tomosynthesis images were obtained and synthetic 2-D images were generated. CAD analysis was submitted and interpreted. COMPARISON: 11/02/2019, 10/21/2018, 09/16/2017 bilateral digital screening mammogram examinations BREAST PARENCHYMAL COMPOSITION: There are scattered areas of fibroglandular density. FINDINGS: There is no evidence of suspicious mass, calcification, or architectural distortion to sugg est malignancy in either breast. There has been no suspicious interval change. IMPRESSION: 1. No mammographic evidence of malignancy. 2. Recommend routine screening mammography in one year. BI-RADS Category 1: Negative Reviewed, dictated and finalized at location B.
== END 2021-01-01 07:35 | disposition home or self-care (01) ==
LOC: ANHIMG 07:36
PROVIDERS: PCP Family Medicine; Visit Provider Obstetrics & Gynecology Gynecology
DX: Z12.31 Encounter for screening mammogram for malignant neoplasm of breast (principal)
CPT/HCPCS: 77063; 77067

== ENCOUNTER 2022-04-06 07:44 | Outpatient (CLI) | payer MEDICARE, BC, SELFPAY ==
--- NOTE | ~2022-04-06 | MM_ITS ---
EXAMINATION: MM screening sharan BI w boone HISTORY: Screening TECHNIQUE: Craniocaudal and mediolateral oblique 3-D tomosynthesis images were obtained and synthetic 2-D images were generated. CAD analysis was submitted and interpreted. COMPARISON: Comparison to multiple prior studies sequentially, with oldest reviewed study dated 08/13. BREAST PARENCHYMAL COMPOSITION: The breasts are extremely dense, which lowers the sensitivity of mamm ography FINDINGS: There is a developing subareolar asymmetry in the left breast. The right breast is stable w ithout evidence for malignancy. IMPRESSION: 1. Developing subareolar asymmetry of the left breast. 2. . Additional spot compression and mediolateral views with possible follow-up breast ultrasound rec ommended. BI-RADS Category 0: Incomplete: Needs additional imaging evaluation. Reviewed, dictated and finalized at location A. IMPRESSION: 1. Developing subareolar asymmetry of the left breast. 2. . Additional spot compression and mediolateral views with possible follow-up breast ultrasound recommended. BI-RADS Category 0: Incomplete: Needs additional imaging evaluation.
== END 2022-04-06 07:45 | disposition home or self-care (01) ==
LOC: ANHIMG 07:46
PROVIDERS: PCP Family Medicine; Visit Provider Obstetrics & Gynecology Gynecology
DX: Z12.31 Encounter for screening mammogram for malignant neoplasm of breast (principal); R92.8 Other abnormal and inconclusive findings on diagnostic imaging of breast
CPT/HCPCS: 77063; 77067

== ENCOUNTER 2022-04-08 10:03 | Outpatient (CLI) | payer MEDICARE, BC, SELFPAY ==
--- NOTE | ~2022-04-08 | DEXA_ITS ---
Bone Density Report Name: GERMÁN OWEN Age: 71 Sex: Female Ethnicity: White Date of : 1950 Indication: postmenopausal; screening for osteoporosis; parental hip fracture; height loss; prior fracture; Referring Provider: Gricelda Pleitez Study: Bone densitometry was performed. Exam Date: April 08, 2022 Accession number: [id number] Bone Density: Region BMD T-score Z-score Classification AP Spine(L1-L4) 0.970 -0.7 1.6 Normal Femoral Neck (Left) 0.524 -2.9 -0.9 Osteoporosis Total Hip (Left) 0.620 -2.6 -0.9 Osteoporosis Femoral Neck (Right) 0.563 -2.6 -0.6 Osteoporosis Total Hip (Right) 0.610 -2.7 -1.0 Osteoporosis Femoral Neck Mean 0.544 -2.8 -0.8 Osteoporosis Total Hip Mean 0.615 -2.7 -1.0 Osteoporosis World Health Organization criteria for BMD impression classify patients as: Normal (T-score at or above -1.0), Osteopenia (T-score between -1.0 and -2.5), or Osteoporosis (T-score at or below -2.5). 10-year Fracture Risk: FRAX not reported because: Some T-score for Spine Total or Hip Total or Femoral Neck at or below -2.5 Prior hip or vertebral fracture Treated for osteoporosis Clinical Information Provided by Patient: Have had a previous hip or vertebral fracture Has had a low trauma fracture Parent has had a hip fracture Is being treated for osteoporosis Has used the following medications: Fosamax (i.e. alendronate) Patient maximum height was 62 Menopause Age: 48 Does not regularly consume dairy products Drinks caffeinated beverages Onset of menses at age 11 Number of children 1 Impression: The patient has established osteoporosis, based on the Left Femoral Neck T-score and the existence of a prior fracture. The patient has risk factors, including: parental hip fracture, previous fracture. Discussion: It is important to ask patients whether they are taking their medications and to encourage continued and appropriate compliance with their osteoporosis therapies to reduce fracture risk. It is also important to review their risk factors and encourage appropriate calcium and vitamin D intakes, exercise, fall prevention and other lifestyle measures. Follow-Up: Consider a repeat BMD and Vertebral Fracture Assessment (VFA) exam in 2 years or sooner if medically necessary, to reassess this patient's status. Reported by: Dr. Xavier Allred on 04/08/2022 10:31:00 AM. Reviewed, dictated and finalized at location A. [facility]
== END 2022-04-08 10:04 | disposition home or self-care (01) ==
LOC: CHSIMG 10:05
PROVIDERS: PCP Family Medicine; Visit Provider Obstetrics & Gynecology Gynecology
DX: M81.0 Age-related osteoporosis without current pathological fracture (principal); Z78.0 Asymptomatic menopausal state
CPT/HCPCS: 77080

== ENCOUNTER 2022-04-16 12:38 | Outpatient (CLI) | payer MEDICARE, BC, SELFPAY ==
--- NOTE | ~2022-04-16 | MMUS_ITS ---
EXAMINATION: MM diagnostic sharan LT w boone, US breast LT limited HISTORY: Follow-up left breast mass TECHNIQUE: Additional 3-D tomosynthesis images of the left breast were performed and synthetic 2-D im ages were generated. CAD analysis was submitted and interpreted. High resolution left breast ultrasou nd was performed. COMPARISON: Comparison to multiple prior studies sequentially, with oldest reviewed study dated 08/13. BREAST PARENCHYMAL COMPOSITION: The breasts are heterogenously dense, which may obscure small masses FINDINGS: MAMMOGRAPHIC FINDINGS: There are no suspicious masses, calcifications or architectural distortion in the left breast. ULTRASOUND: Limited left breast ultrasound: Normal heterogeneous soft tissues without focal mass. IMPRESSION: 1. No evidence for malignancy in the left breast. 2. Routine yearly screening mammogram and regular clinical breast examination are recommended. BI-RADS Category 1: Negative Reviewed, dictated and finalized at location A. IMPRESSION: 1. No evidence for malignancy in the left breast. 2. Routine yearly screening mammogram and regular clinical breast examination a re recommended. BI-RADS Category 1: Negative
== END 2022-04-16 12:39 | disposition home or self-care (01) ==
PROVIDERS: PCP Family Medicine; Visit Provider Obstetrics & Gynecology Gynecology
DX: R92.8 Other abnormal and inconclusive findings on diagnostic imaging of breast (principal)
CPT/HCPCS: 76642; 77061; 77065; G0279

== ENCOUNTER → 2022-05-20 09:26 | Outpatient (CLI) | payer MEDICARE, BC, SELFPAY ==
--- NOTE | ~2022-05-20 | CT_ITS ---
EXAMINATION: CT abdomen pelvis w con DATE: 05/20/2022 10:08 INDICATION: Left renal pelvic cancer. Left nephroureterectomy. TECHNIQUE: Computed tomography (CT) of the abdomen and pelvis was performed with 100 CC Omnipaque 350 intravenous contrast. Automated exposure control and iterative reconstruction technique were employe d. Exam dose: 145.40 mGy-cm total exam DLP. COMPARISON: 03/27/2020 CT abdomen pelvis FINDINGS: Minimal focal groundglass infiltrate or atelectasis in the posterolateral right lower lobe. The lung bases are clear of infiltrate or consolidation otherwise. Normal heart size. No pericardial or pleural effusion. Scattered hepatic cysts, the largest approximately 11 mm. Interval development of a huge irregular hypoattenuating mass of the right hepatic lobe is up to appr oximately 6.7 x 7.7 x 8.7 cm maximal dimension. New approximately 1 cm irregular hypoattenuating mass in the anterior hepatic dome. 9.2 mm hypoattenuating mass in the lateral aspect of the right hepatic lobe. Although New approximate ly 8.5 mm mass along the anteroinferior aspect of the inferior portion of the right hepatic lobe New approximately 2.7 cm splenic irregular hypoattenuating mass lesion. The gallbladder is present. No bile duct dilatation. No pancreatic mass lesion, calcification or ductal dilatation. No splenomegaly. The adrenal glands are unremarkable. Status post left nephrectomy. No abnormal mass lesion is noted in the left nephrectomy bed. No right renal mass lesion or right urinary tract calculus or hydroureteronephrosis is evident. The u rinary bladder is largely evacuated and not optimally evaluated. There is atherosclerotic calcification but normal caliber of the abdominal aorta. No intraperitoneal or retroperitoneal or pelvic mass lesion or adenopathy is noted otherwise. There is a prominent amount of fecal material in the colon, particularly the cecum and ascending colo n. There are nonspecific air-fluid levels of small bowel which may be due to enteritis or adynamic il eus. No apparent bowel obstruction or intraperitoneal free air. There is diminished subcutaneous adipose tissue of the abdomen and pelvis indicating weight loss sinc e 03/27/2020. Healed posterior left 11th and 12th rib fracture deformities. Since 03/27/2020 there has been a severe burst fracture deformity of L1 with patchy sclerosis of this body indicating this may be a pathologic fracture. 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 IMPRESSION: Multiple hepatic masses since 03/27/2020, the largest measuring up to 8.7 cm. These may be hepatic metastatic deposits. Differential diagnosis includes multifocal hepatocellular carcinoma 2.7 cm splenic mass, likely a metastasis Severe burst fracture of L1, possibly pathologic Reviewed, dictated and finalized at Location A. Reviewed, dictated and finalized at location B. IMPRESSION: Multiple hepatic masses since 03/27/2020, the largest measuring up t o 8.7 cm. These may be hepatic metastatic deposits. Differential diagnosis incl udes multifocal hepatocellular carcinoma 2.7 cm splenic mass, likely a metastasis Severe burst fracture of L1, possibly pathologic
[2022-05-20 09:55] LABS: Estimated Glomerular Filt Rate > 60
== END ==
PROVIDERS: PCP Urology; Visit Provider Urology
DX: C65.2 Malignant neoplasm of left renal pelvis (principal); R16.0 Hepatomegaly, not elsewhere classified; R16.1 Splenomegaly, not elsewhere classified; S32.011A Stable burst fracture of first lumbar vertebra, initial encounter for closed fracture
CPT/HCPCS: 74177; Q9967

== ENCOUNTER 2022-06-17 01:42 | Outpatient (CLI) | payer MEDICARE, BC, SELFPAY ==
[2022-06-09 13:48] VITALS: BMI 13.7
--- NOTE | 2022-06-09 13:52 | PC.NURSE ---
Pre Radiology instructions Report to the Outpatient Waiting Room, entrance under the green pavilion located off [facility], at time ___0830____ on date _06/17/22 . Procedure Time: ___1030 . One visitor will be allowed to accompany the patient into the hospital. The visitor will be instructed to remain with patient at all times or leave the building due to restrictions. We will allow the visitor to come back to the postoperative area when patient is ready. NO children visitors allowed at this time. You and your visitor will be asked to self-screen and do not enter if you have any COVID symptoms. A mask is required within the hospital. Patients are to have no food or drink 6 hours prior to procedure time (0430 AM) Driving will be restricted after the procedure, you must have a person to drive you home. Labs will be drawn in preop area and once reviewed, you will be taken to radiology area for procedure. When the procedure is completed, you will be taken to outpatient where you will be monitored for several hours. You may have one visitor in this area. Other than holding anti-coagulants, patient may take other medication(s) as scheduled. Prior to your appointment date patients are instructed to hold anti-coagulants after discussing with ordering provider to stop. If unable to discontinue anti-coagulants please notify radiologist. No aspirin or warfarin (Coumadin) for 7 days prior to the procedure. No clopidogrel (Plavix), ticagrelor (Brilinta), prasugrel (Effient) or dabigatran (Pradaxa) for 5 days prior to the procedure. No rivaroxaban (Xarelto), apixaban (Eliquis), dipyridamole (Aggrenox or Persantine) or cilostazol (Pletal) for 2 days prior to the procedure. Medications to discontinue per physician: N/A Date to take last dose: Please leave all valuables, including medications, at home the day of procedure. The hospital will not accept responsibility for valuables. Wear comfortable, loose fitting clothing. Follow any additional instructions given to you from ordering provider. Telephone instructions given to ___PT and asked if any additional questions and then verbalized understanding. Patient advised to call scheduling provider office or registration scheduling [phone] if any additional questions.
[2022-06-17] VITALS (11 sets, daily range): BP systolic 105–120; BP diastolic 37–79; PULSE 54–122; RESP 14–18; TEMP 36.5; O2SAT 100
--- NOTE | ~2022-06-17 | US_ITS ---
EXAMINATION: US biopsy liver DATE: 06/17/2022 11:21 INDICATION: Liver mass. TECHNIQUE: The procedure including the risks, benefits, and alternatives was discussed with the patie nt. Risks discussed included bleeding and infection. The patient understood the risks and agreed to p roceed. The skin overlying the right hepatic lobe was prepped and draped in usual sterile fashion. A nesthetic was administered with 1% lidocaine subcutaneously. An 18 gauge core biopsy needle was then used to obtain 3 core biopsy specimens under continuous sonographic guidance. The entry site was rodriguez aned and dressed. There were no immediate complications. FINDINGS: Ultrasound images demonstrate the needle in a 15 mm mass in right hepatic lobe. IMPRESSION: 1. Ultrasound-guided core needle biopsy of a liver mass. Reviewed, dictated and finalized at location A.
[2022-06-17 09:07] LABS: Mean Platelet Volume 8.8 fl (7.4-10.4); Platelet Count Result 230 k/mm3 (150-375)
[2022-06-17 09:18] LABS: INR 1.1; Prothrombin Time 13.3 Seconds (11.1-14.7)
== END 2022-06-17 15:25 | disposition home or self-care (01) ==
PROVIDERS: PCP Family Medicine; Referring Provider Urology; Visit Provider Radiology Diagnostic Radiology
PROC: BF45ZZZ Ultrasonography of Liver (ICD-10-PCS; CPT 47000; principal; 2022-06-17 10:30)
DX: K76.9 Liver disease, unspecified (principal)
CPT/HCPCS: 36415; 47000; 76942; 85049; 85610; 88307; 88312; 88342